=== PATIENT | male | born 1950 | race Caucasian/White ===

== ENCOUNTER 2018-03-13 00:37 | Inpatient (IN) ==
--- NOTE | 2018-03-13 02:01 | ED ---
HPI General Chief complaint: Head Injury Stated complaint: Skull Frac/trans [place] Time Seen by Provider: 03/13/18 01:51 Source: patient, EMS and RN notes reviewed Mode of arrival: EMS Limitations: no limitations History of Present Illness MD Complaint: head injury Onset (ago): day(s) (1) Mechanism of Injury: fall Place: home Loss of Consciousness: yes Location of injury: parietal Other Injuries: none Context: recent alcohol use Associated symptoms: denies other symptoms Related Data Home Medications Medication Instructions Recorded Confirmed alprazolam [Xanax] mg PO 03/13/18 clonidine HCl [Catapres] mg PO 03/13/18 diltiazem HCl [Cardizem] mg PO 03/13/18 duloxetine [Cymbalta] mg PO 03/13/18 gabapentin [Neurontin] mg PO 03/13/18 hydrochlorothiazide mg PO 03/13/18 lisinopril mg PO 03/13/18 metformin mg PO 03/13/18 omeprazole mg PO 03/13/18 Allergies Allergy/AdvReac Type Severity Reaction Status Date / Time No Known Allergies Allergy Unverified 03/13/18 00:51 Review of Systems ROS: all other systems reviewed are negative [facility] Medical History Medical History Alcohol abuse (Acute) Anxiety (Acute) Arthritis (Acute) Diabetes (Acute) GERD (gastroesophageal reflux disease) (Acute) Hypertension (Acute) PTSD (post-traumatic stress disorder) (Acute) Seizure (Acute) Surgical History Surgical History History of cholecystectomy (Acute) Social History Social History Substance History: No History of Abuse Second Hand Smoke Exposure: No Smoking Status: Current every day smoker Tobacco Type: Cigarettes How Often Do You Have a Drink Containing Alcohol: 4 or more times a week Recent Travel in [facility] within the Last 8 Weeks: No Recent Out of Country Travel within the Last 8 Weeks: No Immunization History Tetanus Immunization: Unsure Hx Influenza Vaccine This Season: Yes Exam Const General: cooperative, healthy appearing, comfortable, no acute distress and well developed Orientation: alert, awake and oriented x3 HENMT Head: normal to inspection, normocephalic and contusion left parietal Eyes Alignment and Position: alignment normal and position abnormal Conjunctivae: conjunctivae normal Sclera: sclerae normal EOM: EOM intact bilaterally Neck Neck: normal visual inspection and full ROM Chest Chest: normal inspection of the chest Resp Effort & Inspection: normal respiratory effort and able to speak in complete sentences Auscultation: clear to auscultation bilaterally Cardio Rate: regular rate Rhythm: regular rhythm GI Inspection: normal to inspection Palpation: soft Back/Spine/Pelvis Cervical Spine: cervical ROM normal Thoracic/Lumbar Spine: thoraco-lumbar ROM normal Skin General: no rashes or lesions noted, turgor normal and dry skin Neuro General: alert, awake, oriented x3, moves all extremities and CN's II-XI intact bilaterally Extrem General: normal to inspection and full ROM Psych Appearance: grossly normal Mental Status: mental status grossly normal Speech and Movement: speech and movement normal Mood: congruent mood Affect: normal affect Attitude: cooperative Thought Process: normal Thought Content: normal Judgment: judgment good Course Consultations Consultation #1: Dr. Christensen Time: 02:02 Initial Documented Vital Signs Temperature 98.4 F 03/13/18 00:51 Pulse Rate 101 H 03/13/18 00:51 Respiratory Rate 18 03/13/18 00:51 Blood Pressure 129/77 03/13/18 00:51 Pulse Oximetry 97 03/13/18 00:51 Last Documented Vital Signs Temperature 98.4 F 03/13/18 00:51 Pulse Rate 101 H 03/13/18 00:51 Respiratory Rate 18 03/13/18 00:51 Blood Pressure 129/77 03/13/18 00:51 Pulse Oximetry 97 03/13/18 00:51 Medical Decision Making [facility] Narrative Medical decision making narrative: Patient was transferred to us from [place] because of a fall with a resultant skull fracture and subdural hematoma. On exam, the patient is currently neurologically intact. He will be admitted to the trauma service with consultation with neurosurgery. Medical Screen Exam Complete: Yes Emergency Medical Condition: Yes Differential Diagnosis Differential Diagnosis: My differential diagnosis of head trauma includes but is not limited to scalp contusion, concussion, intracerebral hemorrhage. Discharge Plan Discharge Disposition Patient Disposition: 30 Still Patient Discharge Details Diagnosis: Closed head injury, Subdural hematoma, Closed skull fracture Physicians Team ED Provider: Ester Sanderson Primary Care Provider: Primary Care Robertoi,Deborah Attending Provider: Davon Christensen Status ED Status: Admitted Patient
[2018-03-13] MEDS ORDERED: Acetaminophen 325 MG Tablet PO ONE (03:11)
[2018-03-13] MEDS: Sod Chloride 0.9% Inj 1,000 ML IV.CONT SCH ×2 (06:30→21:05)
[2018-03-13] MEDS ORDERED: Sod Chloride 0.9% Inj 1,000 ML IV.CONT SCH (06:30)
[2018-03-13] MEDS ORDERED: HYDROmorphone PF Inj 2 MG/ML Vial IV.PUSH PRN (06:45)
[2018-03-13] MEDS: Docusate Sodium 100 MG Capsule PO SCH ×2 (08:01→21:07)
[2018-03-13] MEDS: Folic Acid 1 MG Tablet PO SCH (08:01)
[2018-03-13] MEDS ORDERED: Multivitamin Inj 10 ML, Thiamine Inj 100 MG, Folic Acid Inj 1 MG in Sodium Chlor 0.9% I... IV.SIG SCH (09:00)
[2018-03-13] MEDS ORDERED: Pantoprazole Inj 40 MG Vial IV.PUSH SCH (09:00)
[2018-03-13 09:53] LABS: Baso % (Auto) 0.5 % (0.0-2.0); Eos % (Auto) 1.1 % (0.0-4.0); Hematocrit 34.6 % (39.0-51.0); Hemoglobin 11.7 gm/dL (13.0-17.0); Lymph # (Auto) 1.9 th/mm3 (1.0-4.8); Lymph % (Auto) 42.9 % (9.0-44.0); Mean Corpuscular HGB Conc 33.8 % (32.0-36.0); Mean Corpuscular Hemoglobin 32.5 pg (27.0-34.0); Mean Corpuscular Volume 96.2 fL (80.0-100.0); Mono # (Auto) 0.5 th/mm3 (0.0-0.9); Mono % (Auto) 11.5 % (0.0-8.0); Neut # (Auto) 1.9 th/mm3 (1.8-7.7); Platelet Count 235 th/mm3 (150-450); Red Cell Distribution Width 15.7 % (11.6-17.2); White Blood Count 4.4 th/mm3 (4.0-11.0)
[2018-03-13 10:20] LABS: Anion Gap 13 meq/L (5-15); Blood Urea Nitrogen 9 mg/dL (7-18); Calcium 8.5 mg/dL (8.5-10.1); Carbon Dioxide 23.9 meq/L (21.0-32.0); Chloride 100 meq/L (98-107); Glomerular Filtration Rate Greater Than 89 mL/min (>89); Glucose,Random 127 mg/dL (74-106); Potassium 3.4 meq/L (3.5-5.1); Sodium 137 meq/L (136-145)
[2018-03-13] MEDS ORDERED: Dextrose 50% in Water 50 ML Vial IV.PUSH PRN (11:05)
[2018-03-13] MEDS: Insulin NovoLIN Regular Correctional Sugar Inj SQ SCH ×3 (12:44→21:26)
[2018-03-13] MEDS: Lisinopril 20 MG Tablet PO SCH (16:30)
[2018-03-13] MEDS ORDERED: dilTIAZem CD 180 MG Capsule PO SCH (17:00)
[2018-03-13] MEDS: diazePAM 5 MG Tablet PO SCH ×2 (17:43→21:06)
[2018-03-13] MEDS: hydroCHLOROthiazide 25 MG Tablet PO SCH (17:44)
[2018-03-13] MEDS: Duloxetine 60 MG DR Capsule PO SCH (21:07)
[2018-03-13] MEDS: levETIRAcetam 500 MG Tablet PO SCH (21:07)
[2018-03-13] MEDS: Acetaminophen 325 MG Tablet PO PRN (22:34)
[2018-03-14] MEDS ORDERED: Chlorhexidine Gluconate 2% 1 Pack (2 Cloths) TOPICAL PRN (04:00)
[2018-03-14] MEDS ORDERED: Chlorhexidine Gluconate 2% 1 Pack (2 Cloths) TOPICAL SCH (04:00)
[2018-03-14 04:42] LABS: Baso % (Auto) 0.7 % (0.0-2.0); Eos # (Auto) 0.1 th/mm3 (0.0-0.4); Eos % (Auto) 1.3 % (0.0-4.0); Hematocrit 32.7 % (39.0-51.0); Hemoglobin 11.3 gm/dL (13.0-17.0); Lymph % (Auto) 46.7 % (9.0-44.0); Mean Corpuscular HGB Conc 34.7 % (32.0-36.0); Mean Corpuscular Hemoglobin 32.7 pg (27.0-34.0); Mean Corpuscular Volume 94.2 fL (80.0-100.0); Mean Platelet Volume 6.8 fL (7.0-11.0); Mono # (Auto) 0.4 th/mm3 (0.0-0.9); Mono % (Auto) 9.5 % (0.0-8.0); Neut # (Auto) 1.8 th/mm3 (1.8-7.7); Neut % (Auto) 41.8 % (16.0-70.0); Platelet Count 214 th/mm3 (150-450); Red Blood Count 3.47 mil/mm3 (4.50-5.90); Red Cell Distribution Width 15.4 % (11.6-17.2); White Blood Count 4.3 th/mm3 (4.0-11.0)
[2018-03-14 05:06] LABS: Anion Gap 11 meq/L (5-15); Blood Urea Nitrogen 7 mg/dL (7-18); Calcium 8.7 mg/dL (8.5-10.1); Carbon Dioxide 26.4 meq/L (21.0-32.0); Chloride 104 meq/L (98-107); Glomerular Filtration Rate Greater Than 89 mL/min (>89); Glucose,Random 191 mg/dL (74-106); Potassium 3.4 meq/L (3.5-5.1); Sodium 141 meq/L (136-145)
[2018-03-14] MEDS: Acetaminophen 325 MG Tablet PO PRN (06:02)
[2018-03-14] MEDS: Insulin NovoLIN Regular Correctional Sugar Inj SQ SCH ×2 (08:00→13:05)
[2018-03-14] MEDS ORDERED: Pantoprazole Sodium 20 MG DR Tablet PO SCH (09:00)
[2018-03-14] MEDS: Sod Chloride 0.9% Inj 1,000 ML IV.CONT SCH (09:41)
[2018-03-14] MEDS: Docusate Sodium 100 MG Capsule PO SCH (09:43)
[2018-03-14] MEDS: Duloxetine 60 MG DR Capsule PO SCH (09:43)
[2018-03-14] MEDS: Folic Acid 1 MG Tablet PO SCH (09:43)
[2018-03-14] MEDS: levETIRAcetam 500 MG Tablet PO SCH (09:43)
[2018-03-14] MEDS: hydroCHLOROthiazide 25 MG Tablet PO SCH (09:43)
[2018-03-14] MEDS: Lisinopril 20 MG Tablet PO SCH (09:44)
[2018-03-14] MEDS: diazePAM 5 MG Tablet PO SCH ×2 (09:44→13:06)
--- NOTE | 2018-03-14 14:30 | ECG ---
Date Performed: 03/13/2018 Time Performed: 15:35:20 PTAGE: 67 years EKG: Sinus rhythm WITH OCCASIONAL SUPRAVENTRICULAR PREMATURE COMPLEXES BORDERLINE ECG NO PREVIOUS TRACING DOCTOR: Shelia Sneed Interpretating Date/Time 03/14/2018 14:28:09
== END 2018-03-14 14:59 | disposition home or self-care (01) ==
LOC: NEPE 00:37 → NEDA 01:56 → N05 03:24
PROVIDERS: ADMIT Surgery; ATTEND Surgery